=== PATIENT | female | born 1985 | race Caucasian/White ===

== ENCOUNTER 2017-06-18 13:03 | Emergency (ER) | payer SELFPAY ==
[~2017-06-18] VITALS: Ht 154.9 cm; Wt 80.7 kg
[2017-06-18] MEDS ORDERED: diphenhydrAMINE 50 MG/1 ML VIAL IM ONE (13:15)
--- NOTE | 2017-06-18 13:22 | NUR ---
PT EVALUATED BY DR MURRIETA. MEDICATED PER MD ORDER.
--- NOTE | 2017-06-18 13:31 | NUR ---
Patient discharged to home in stable conditon. Written and verbal after care instructions given. Patient verbalizes understanding of instructions.pt face, neck and cheat and hands cleared up. pt says feels ok. ready to go back to work. 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
[2017-06-18] MEDS ORDERED: diphenhydrAMINE 50 MG/1 ML VIAL ONE (13:35)
== END 2017-06-18 13:34 | disposition home or self-care (01) ==
LOC: ER 13:03
DX: T78.40XA Allergy, unspecified, initial encounter (principal); X58.XXXA Exposure to other specified factors, initial encounter
CPT/HCPCS: 96372; 99283; A4663; J1200

== ENCOUNTER 2017-10-11 09:35 | Emergency (ER) | payer BC, OTHER ==
[~2017-10-11] VITALS: Ht 162.6 cm; Wt 77.1 kg
[2017-10-11] MEDS ORDERED: predniSONE 20 MG TABLET ONE (09:51)
[2017-10-11] MEDS ORDERED: diphenhydrAMINE 50 MG CAPSULE ONE (09:52)
[2017-10-11] MEDS ORDERED: diphenhydrAMINE 50 MG CAPSULE PO ONE (10:00)
[2017-10-11] MEDS ORDERED: predniSONE 20 MG TABLET PO ONE (10:00)
--- NOTE | 2017-10-11 10:50 | NUR ---
Patient discharged to home in stable conditon. Written and verbal after care instructions given. Patient verbalizes understanding of instructions.PT WALKS IN STEADY GAIT, REDNESS ON THE FACE AND NECK RESOLVED. PT SAYS FEELS BETTER. BREATHING NORMALLY.
[2017-10-11 11:40] VITALS: BP 131/86
== END 2017-10-11 10:50 | disposition home or self-care (01) ==
LOC: ER 09:35
DX: T78.40XA Allergy, unspecified, initial encounter (principal)
CPT/HCPCS: A4663; J7512; Q0163

== ENCOUNTER 2018-03-19 10:17 | Outpatient (CLI) | payer BC, OTHER ==
[2018-03-20 10:14] LABS: BASOPHILS % (AUTO) 0.6 % (0.0-2.0); EOSINOPHILS # (AUTO) 0.1 K/uL (0.0-0.7); EOSINOPHILS % (AUTO) 1.4 % (0.0-7.0); HEMATOCRIT 37.9 % (31.2-41.9); HEMOGLOBIN 13.1 g/dL (10.9-14.3); LYMPHOCYTES # (AUTO) 1.6 K/uL (20.0-40.0); MEAN CORPUSCULAR HGB CONC 34 g/dL (32.3-35.6); MEAN CORPUSCULAR VOLUME 87.1 fL (75.5-95.3); MONOCYTES # (AUTO) 0.4 K/uL (2.0-10.0); MONOCYTES % (AUTO) 8.2 % (0.0-11.0); NEUTROPHILS # (AUTO) 2.3 K/uL (1.8-8.9); NEUTROPHILS % (AUTO) 52.8 % (38.5-71.5); PLATELET COUNT (AUTO) 218 K/uL (179-408); RED BLOOD CELL COUNT(AUTO) 4.35 MIL/uL (3.63-4.92); WHITE BLOOD COUNT (AUTO) 4.4 K/uL (3.8-11.8)
[2018-03-20 10:38] LABS: THYROID STIMULATING HORMONE 2.658 mIU/mL (0.358-3.740)
[2018-03-20 10:55] LABS: BILIRUBIN,TOTAL 0.7 mg/dL (0.2-1.0); CREATININE 0.7 mg/dL (0.6-1.3); POTASSIUM 3.7 mmol/L (3.5-5.1); TOTAL PROTEIN, SERUM 8.1 g/dL (6.4-8.2)
[2018-03-20 13:45] LABS: *BILIRUBIN,URIN NEGATIVE (NEGATIVE); *BLOOD, URINE Trace-lysed (NEGATIVE); *CLARITY,URINE CLEAR (CLEAR); *COLOR,URINE YELLOW (YELLOW); *KETONES,URINE NEGATIVE (NEGATIVE); *PROTEIN,URINE NEGATIVE (NEGATIVE); *UROBILINOGEN,URINE 0.2 E.U./dl (NORMAL); LEUKOCYTE ESTERASE ,URINE NEGATIVE (NEGATIVE); NITRITE, URINE NEGATIVE (NEGATIVE); UGLUCOSE NEGATIVE (NEGATIVE)
[2018-03-20 14:00] LABS: BACTERIA,URINE MODERATE /HPF (NONE SEEN); RBC,URINE 0-3 /HPF (0-3); SQUAMOUS EPITHELIAL CELL,UR MODERATE /HPF (NONE SEEN); WBC,URINE 0-3 /HPF (0-3)
== END 2018-03-19 23:59 | disposition home or self-care (01) ==
LOC: LAB 10:17
PROVIDERS: ATTEND Family Medicine
DX: Z00.01 Encounter for general adult medical examination with abnormal findings (principal); Z98.84 Bariatric surgery status
CPT/HCPCS: 36415; 82306; 82746; 83550; 84443; 85025; 87086